=== PATIENT | male | born 1950 | race Caucasian/White ===

== ENCOUNTER 2024-08-14 10:12 | Outpatient (CLI) | payer MEDICARE, SELFPAY | END 2024-08-14 10:13 | disposition home or self-care (01) | LOC: NFLDREF 08-15 22:47 | PROVIDERS: PCP Physician Assistant Medical; Referring Provider Physician Assistant Medical; Visit Provider Physician Assistant Medical | DX: I10 Essential (primary) hypertension (principal); E78.5 Hyperlipidemia, unspecified; I25.10 Atherosclerotic heart disease of native coronary artery without angina pectoris; Z13.1 Encounter for screening for diabetes mellitus; Z12.5 Encounter for screening for malignant neoplasm of prostate | CPT/HCPCS: 80053; 80061; 84443; G0103 ==

== ENCOUNTER 2025-03-03 14:49 | Outpatient (CLI) | payer MEDICARE, SELFPAY | END 2025-03-03 14:50 | disposition home or self-care (01) | PROVIDERS: PCP Physician Assistant Medical; Visit Provider Physician Assistant Medical | DX: I25.10 Atherosclerotic heart disease of native coronary artery without angina pectoris (principal); I35.0 Nonrheumatic aortic (valve) stenosis; R07.9 Chest pain, unspecified | CPT/HCPCS: 93306 ==

== ENCOUNTER 2025-03-04 12:39 | Outpatient (CLI) | payer MEDICARE, SELFPAY ==
[2025-03-04] MEDS: PERFLUTREN LIPID MICROSPHERES 2 ML VIAL IVP (14:01)
[2025-03-04 14:11] VITALS: BP 112/70; PULSE 89; RESP 16
--- NOTE | 2025-03-04 15:07 | W.PM.STED ---
Stress Test Note Date Date Seen: 03/04/25 Date of test: 03/04/25 Providers Primary care provider: Darrius Palacio Stress test physician: Jean Claude Barone Stress Test Note Stress test ordered: Stress Echo Indication for test: Coronary disease Stress test medicine: Definity Results discussion: Patient is a very nice gentleman who presents for the above test after discussion the risks benefits and side effects he would like to proceed cardiac stress test medical history form is reviewed in detail, pretest EKG shows normal sinus rhythm with ventricular rate of 65 and a blood pressure 144/84. Standard Armen protocol is employed over a time course of 9 minutes 2nd, he achieved a metabolic equivalent of 10.5 Mets with a maximum heart rate 134, which is 108% of the maximum. Maximum blood pressure is 178/82. He did have a rate dependent quadrigeminy, noted. No significant ST wave changes suggestive of ischemia, he did have some PVCs noted above. Exercise tolerance was felt to be good. Impression: Negative electrographic portion of stress echo, there was some quadrigeminy and PVCs noted. No subjective symptoms, Follow up suggested: Await echo correlation with this, Cardiology will over read this, and then clinical correlation will be needed.
== END 2025-03-04 14:12 | disposition home or self-care (01) ==
LOC: STRESS 12:40
PROVIDERS: PCP Physician Assistant Medical; Visit Provider Physician Assistant Medical
DX: I25.10 Atherosclerotic heart disease of native coronary artery without angina pectoris (principal); R07.9 Chest pain, unspecified
CPT/HCPCS: 93016; 93325; 93351; Q9957

== ENCOUNTER 2025-03-11 10:10 | Outpatient (CLI) | payer MEDICARE, SELFPAY ==
--- NOTE | 2025-03-11 12:03 | P.ANES_ITS ---
Anesthesia Charges Start Date/Time Anesthesia Start Date: 03/11/25 Anesthesia Start Time: 11:17 Stop Date/Time Anesthesia Stop Date: 03/11/25 Anesthesia Stop Time: 11:54 Summary Extremes of Age - Over 70 or under 1: SHEET METAL PRODUCTION WORKER Coding CPT Codes CPT Codes: ANES LWR INTST NDSC NOS - 17616 ([id number]) P2 - PATIENT W/MILD SYST DISEASE, QK - SILVICULTURIST 2-4 CNCRNT ANES PROC Additional Codes: Summary - Extremes of Age - Over 70 or under 1: SHEET METAL PRODUCTION WORKER ([id number])
--- NOTE | 2025-03-11 12:03 | W.ANESCHARGE ---
Anesthesia Charges Start Date/Time Anesthesia Start Date: 03/11/25 Anesthesia Start Time: 11:17 Stop Date/Time Anesthesia Stop Date: 03/11/25 Anesthesia Stop Time: 11:54 Summary Extremes of Age - Over 70 or under 1: FIELD OPERATIONS COORDINATOR Coding CPT Codes CPT Codes: ANES LWR INTST NDSC NOS - 70343 ([id number]) P2 - PATIENT W/MILD SYST DISEASE, QK - GANG VIBRATOR OPERATOR 2-4 CNCRNT ANES PROC Additional Codes: Summary - Extremes of Age - Over 70 or under 1: FIELD OPERATIONS COORDINATOR ([id number])
--- NOTE | 2025-03-11 13:07 | P.ANES_ITS ---
Anesthesia Charges Start Date/Time Anesthesia Start Date: 03/11/25 Anesthesia Start Time: 11:17 Stop Date/Time Anesthesia Stop Date: 03/11/25 Anesthesia Stop Time: 11:54 Summary Extremes of Age - Over 70 or under 1: MDA Coding CPT Codes CPT Codes: ANES LWR INTST NDSC NOS - 71215 ([id number]) P2 - PATIENT W/MILD SYST DISEASE, QK - LEGAL STENOGRAPHER 2-4 CNCRNT ANES PROC, QX - TEAROOM HOST/HOSTESS SVC W/ MD MED DIRECTION Additional Codes: Summary - Extremes of Age - Over 70 or under 1: MDA ([id number])
--- NOTE | 2025-03-11 13:07 | W.ANESCHARGE ---
Anesthesia Charges Start Date/Time Anesthesia Start Date: 03/11/25 Anesthesia Start Time: 11:17 Stop Date/Time Anesthesia Stop Date: 03/11/25 Anesthesia Stop Time: 11:54 Summary Extremes of Age - Over 70 or under 1: MDA Coding CPT Codes CPT Codes: ANES LWR INTST NDSC NOS - 92768 ([id number]) P2 - PATIENT W/MILD SYST DISEASE, QK - ACCOUNT SUPPORT ASSOCIATE 2-4 CNCRNT ANES PROC, QX - CALL SPECIALIST SVC W/ MD MED DIRECTION Additional Codes: Summary - Extremes of Age - Over 70 or under 1: MDA ([id number])
== END 2025-03-11 10:11 | disposition home or self-care (01) ==
LOC: OP CLINIC 10:11
PROVIDERS: PCP Physician Assistant Medical; Visit Provider Surgery
DX: Z12.11 Encounter for screening for malignant neoplasm of colon (principal); R19.5 Other fecal abnormalities; D12.3 Benign neoplasm of transverse colon; D12.5 Benign neoplasm of sigmoid colon; K57.30 Diverticulosis of large intestine without perforation or abscess without bleeding
CPT/HCPCS: 00811; 00812; 45385; 99100; J2704